=== PATIENT | female | born 1990 | race American Indian/Alaskan Native ===

== ENCOUNTER 2017-09-03 22:13 | Emergency (ER) | payer BC, MEDICAID ==
[2017-09-03 22:25] VITALS: BP 133/77
[2017-09-03 22:53] LABS: Hematocrit 38.3 % (30.3-42.9); Hemoglobin 12.8 gm/dl (10.1-14.3); Mean Corpuscular HGB Conc 33 % (30-34); Mean Corpuscular Hemoglobin 29 pg (28-32); Mean Corpuscular Volume 87 fl (79-97); Platelet Count 438 K/mm3 (140-440); Red Blood Count 4.39 M/mm3 (3.65-5.03); Red Cell Distribution Width 12.8 % (13.2-15.2)
[2017-09-03 23:03] LABS: BUN/Creatinine Ratio 15; Blood Urea Nitrogen 9 mg/dL (7-17); Calcium 9.8 mg/dL (8.4-10.2); Hemolysis Index 2
--- NOTE | 2017-09-04 02:13 | Emergency Department Report ---
ED General Adult HPI - General Chief complaint: Headache Stated complaint: HEADACHE/STRESS Time Seen by Provider: 09/04/17 01:34 Source: patient Mode of arrival: Ambulatory Limitations: No Limitations - History of Present Illness Initial comments: Previously healthy 26-year-old woman presents with 2 isolated episodes of significant dizziness, both episodes today, first episode while she was in bed, lasting for about 10 or 15 minutes, but subsided, and recurred again several hours later, which cause concern. she is in good general health, but reports that she has prior episodes of anxiety him up with previous work stress, but reports that her job is going well now, which she enjoys well, and although she works hard, does not believe she is under significant stress. Nonetheless, she also has noticed that she has not had any menstrual cycle for the past 2 months , and has had repeated evaluations by her statistical programmer, with negative test, as workup for ICD placement, which is scheduled in the next couple of days. She is not particularly concerned about , but has never experienced episodes like this, and finds them disconcerting. Other than previously mentioned stress, patient is in good general health, takes no routine medications for any condition, has not been ill recently, has not had any nausea or vomiting, no diarrhea, no cough or congestion, no fever chills or diaphoresis, no chest pain, no irregularity of heart beat, no syncope. - Related Data Allergies Allergy/AdvReac Type Severity Reaction Status Date / Time No Known Allergies Allergy Unverified 09/03/17 22:24 ED Review of Systems ROS: Stated complaint: HEADACHE/STRESS Other details as noted in HPI ED Past Medical Hx - Past Medical History Previous Medical History?: No - Surgical History Past Surgical History?: No - Social History Smoking Status: Never Smoker Substance Use Type: None ED Physical Exam - General Limitations: No Limitations ED Course Vital Signs 09/03/17 22:19 Temperature 36.9 C Pulse Rate 82 Respiratory 18 Rate Blood Pressure 133/77 O2 Sat by Pulse 99 Oximetry ED Medical Decision Making - Lab Data Result diagrams: 09/03/17 22:27 09/03/17 22:27 - Medical Decision Making This healthy young adult female had symptoms suggestive of orthostatic hypotension, transient, with mild vasovagal component, but on my examination is neurologically stable, symptoms have cleared within 30-60 seconds, and further changes in position, as having going from sitting to standing position, once she is equilibrated, has not caused any additional symptoms. I believe these are mild orthostatic symptoms, she is probably minimally dehydrated, and has poor blood pressure response to changes in positions when she is such. Laboratory evaluation is stable, and test is negative, there is no finding suggestive of infection or inflammation. Patient reassured, but the only effective measures for this condition are reassurance, and focus on hydration, and gradual changes of position when she feels she is symptomatic. She should have follow-up with her primary care physician if she has any persistent symptoms. - Differential Diagnosis vasovagal reaction, orthostatic hypotension, cardiac syncope Critical Care Time: No Critical care attestation.: If time is entered above; I have spent that time in minutes in the direct care of this critically ill patient, excluding procedure time. ED Disposition Clinical Impression: Orthostatic dizziness Disposition: DC-01 TO HOME OR SELFCARE Is pt being admited?: No Does the pt Need Aspirin: No Condition: Stable Instructions: Hypotension (ED) Additional Instructions: Her symptoms today are most suggestive of a transient temporary blood pressure drop when you change your positions, and this is called orthostatic hypotension. This is a common condition, any person can be subject to this, and it is more common when people are dehydrated, or when they are anemic. Your examination today is stable, blood work looks good, you are not anemic, but she did have a brief episode when you changed positions. This did clear within 30-60 seconds, and the general treatment for this is to focus on maintaining good hydration, drinking plenty of fluids regularly over the course of the day, and if he gets symptoms when he change positions, that she rest and hold that position until symptoms have passed. If symptoms feel like they progressed, the next treatment is to lower the position of the head with respect to the heart, so that there is no resistance to blood flow to the brain during these episodes, and this will prevent symptoms from worsening or actually fainting. The first thing you can do for this is to push her head between her legs and rest one or 2 minutes. If you feel it getting worse, he should actually lay flat, either on the road with chairs, or even flat on the floor or in a bed. The symptoms tend to come and go on their own, and are generally not serious on their own. If you have these symptoms recurring regularly, we recommend a repeat evaluation by your primary care doctor, to perform the tests that we have done again today, and perhaps to see a specialist if there are other findings that are worrisome. He may return to the emergency department any time if you have any significant worrisome persistent symptoms Referrals: PRIMARY CARE, [Primary Care Provider] - 3-5 Days Time of Disposition: 02:14
[2017-09-04 02:52] LABS: Bilirubin,Urine NEG (Negative); Blood,Urine NEG (Negative); Color,Urine Yellow (Yellow); Mucus,Urine FEW /HPF; Protein,Urine <15 mg/dL mg/dL (Negative); Urobilinogen,Urine < 2.0 mg/dL (<2.0)
[2017-09-04 02:56] LABS: HCG Qualitative,Urine Negative (Negative)
== END 2017-09-04 02:39 | disposition home or self-care (01) ==
LOC: ED 22:13
DX: R42 Dizziness and giddiness (principal)
CPT/HCPCS: 36415; 80048; 81001; 81025; 85027; 93005; 93010; 99283